=== PATIENT | male | born 1935 | race Caucasian/White ===

== ENCOUNTER 2020-04-08 11:05 | Emergency (ER) | payer OTHER ==
[~2020-04-08] VITALS: Ht 180.3 cm; Wt 73.0 kg
[2020-04-08] MEDS ORDERED: INSULIN AS100 UNIT/3 SQ (11:30)
[2020-04-08] MEDS ORDERED: Metoprolol Suc200 MG PO (11:38)
[2020-04-08] MEDS ORDERED: DULCOLAX STOOL100 M1 PO (11:39)
[2020-04-08] MEDS ORDERED: OMEPRAZOLE20 M2 PO (11:40)
[2020-04-08] MEDS ORDERED: Clopidogrel75 MG PO (11:41)
[2020-04-08] MEDS ORDERED: LIDODERM1 EACH T (11:42)
[2020-04-08] MEDS ORDERED: MIRALAX119 GM PO (11:46)
[2020-04-08] MEDS ORDERED: MEXILETINE150 MG PO (11:46)
[2020-04-08] MEDS ORDERED: LIPITOR40 MG PO (11:48)
[2020-04-08 11:49] LABS: BASO % 0.3 % (0.0-1.0); EOS # 0.1 10*3/uL (0.0-0.4); EOS % 0.4 % (1.0-4.0); HEMATOCRIT 38.6 % (42.0-52.0); LYMPH # 1.3 10*3/uL (1.3-4.4); LYMPH % 8.7 % (27.0-41.0); MEAN CELL VOLUME 97.5 fl (80.0-94.0); MEAN CORPUSCULAR HGB 33.3 pg (27.0-31.0); MEAN CORPUSCULAR HGB CONC 34.2 g/dl (33.0-37.0); MEAN PLATELET VOLUME 9.3 fl (9.6-12.3); MONO # 1.1 10*3/uL (0.1-1.0); MONO % 7.5 % (3.0-9.0); NEUT # 12.1 10*3/uL (2.3-7.9); NEUT % 82.6 % (47.0-73.0); PLATELET COUNT AUTOMATED 141 10*3/uL (130-400); RED BLOOD COUNT 3.96 10*6/uL (4.50-5.90); RED CELL DISTRI WIDTH 13.3 % (0-14.5); WHITE BLOOD COUNT 14.7 10*3/uL (4.8-10.8)
[2020-04-08 12:05] LABS: ALBUMIN 3.7 gm/dl (3.1-4.5); ALKALINE PHOSPHATASE 56 U/L (45-117); BUN 23 mg/dl (7-24); CHLORIDE 107 mmol/L (98-107); CREATININE 1.52 mg/dL (0.70-1.30); SGOT/AST 21 IU/L (3-35); SGPT/ALT 20 U/L (12-78); SODIUM 137 mmol/L (136-145); TOTAL PROTEIN 6.8 gm/dL (6.4-8.2)
[2020-04-08 12:10] LABS: TROPONIN I < 0.015 ng/ml (<0.045)
== END 2020-04-08 14:04 | disposition home or self-care (01) ==
LOC: ED 11:05
PROVIDERS: Emergency Medicine
DX: R55 Syncope and collapse (principal); Z79.899 Other long term (current) drug therapy; Z79.4 Long term (current) use of insulin

== ENCOUNTER 2021-11-27 16:11 | Inpatient (IN) | payer OTHER ==
[~2021-11-27] VITALS: Ht 177.8 cm; Wt 84.5 kg
[~2021-11-27 16:11] MED LIST: Clopidogrel75 MG PO; DULCOLAX STOOL100 M1 PO; INSULIN AS100 UNIT/3 SQ; LIDODERM1 EACH T; LIPITOR40 MG PO; MEXILETINE150 MG PO; MIRALAX119 GM PO; Metoprolol Suc200 MG PO; OMEPRAZOLE20 M2 PO
[2021-11-27 16:50] VITALS: BP 146/78
[2021-11-27 19:58] LABS: BASO % 0.2 % (0.0-1.0); EOS % 0.1 % (1.0-4.0); LYMPH # 1.2 10*3/uL (1.3-4.4); LYMPH % 10.4 % (27.0-41.0); MEAN CELL VOLUME 96.9 fl (80.0-94.0); MEAN CORPUSCULAR HGB 33.4 pg (27.0-31.0); MEAN CORPUSCULAR HGB CONC 34.5 g/dl (33.0-37.0); MEAN PLATELET VOLUME 9.9 fl (9.6-12.3); MONO # 1.4 10*3/uL (0.1-1.0); MONO % 12.2 % (3.0-9.0); NEUT % 76.7 % (47.0-73.0); PLATELET COUNT AUTOMATED 192 10*3/uL (130-400); RED BLOOD COUNT 4.13 10*6/uL (4.50-5.90); RED CELL DISTRI WIDTH 13.2 % (0-14.5); WHITE BLOOD COUNT 11.8 10*3/uL (4.8-10.8)
[2021-11-27 20:09] LABS: ACT PARTIAL THROMBO TIME 30.9 SECONDS (20.0-32.1)
[2021-11-27 20:32] LABS: ALBUMIN 3.6 gm/dl (3.1-4.5); CREATININE 1.72 mg/dL (0.70-1.30); POTASSIUM 4.1 mmol/L (3.5-5.1); TOTAL PROTEIN 7.3 gm/dL (6.4-8.2)
[2021-11-27] MEDS ORDERED: PREDNISONE20 M1 PO (23:25)
[2021-11-27] MEDS ORDERED: PROVENTIL HFA6.7 GM INH (23:25)
[2021-11-27 23:48] VITALS: BP 166/74
[2021-11-28] VITALS (7 sets, daily range): BP systolic 129–144; BP diastolic 70–95
[2021-11-28 05:56] LABS: ALBUMIN 3.3 gm/dl (3.1-4.5); CREATININE 1.72 mg/dL (0.70-1.30); POTASSIUM 4.4 mmol/L (3.5-5.1); TOTAL PROTEIN 7.2 gm/dL (6.4-8.2)
[2021-11-28 05:58] LABS: FREE T4 1.41 ng/dl (0.76-1.46)
[2021-11-28 06:02] LABS: THYROID STIM HORMONE (HS) 0.32 uIU/ml (0.358-4.75)
[2021-11-28 06:15] LABS: HEMATOCRIT 38.2 % (42.0-52.0); MEAN CELL VOLUME 97.7 fl (80.0-94.0); MEAN CORPUSCULAR HGB 33.2 pg (27.0-31.0); MEAN PLATELET VOLUME 10.4 fl (9.6-12.3); PLATELET COUNT AUTOMATED 184 10*3/uL (130-400); RED BLOOD COUNT 3.91 10*6/uL (4.50-5.90); RED CELL DISTRI WIDTH 13.3 % (0-14.5); WHITE BLOOD COUNT 10.9 10*3/uL (4.8-10.8)
[2021-11-28 06:45] LABS: MANUAL DIFF REFLEX YES
[2021-11-28 07:19] LABS: BURR CELLS FEW; PLATELET SUFFICIENCY NORMAL (NORMAL); POLYCHROMASIA SLIGHT; TOTAL CELLS COUNTED 100 #CELLS; TOXIC GRANULATION SLIGHT
[2021-11-29 05:34] LABS: CREATININE 1.85 mg/dL (0.70-1.30); POTASSIUM 4.3 mmol/L (3.5-5.1)
[2021-11-29 06:43] LABS: HEMATOCRIT 37.6 % (42.0-52.0); MEAN CELL VOLUME 96.4 fl (80.0-94.0); MEAN CORPUSCULAR HGB 32.8 pg (27.0-31.0); MEAN PLATELET VOLUME 10.4 fl (9.6-12.3); PLATELET COUNT AUTOMATED 186 10*3/uL (130-400); RED CELL DISTRI WIDTH 13.2 % (0-14.5); WHITE BLOOD COUNT 16.4 10*3/uL (4.8-10.8)
[2021-11-29 06:48] LABS: MANUAL DIFF REFLEX YES
[2021-11-29 07:51] LABS: TOTAL CELLS COUNTED 100 #CELLS
[2021-11-29 07:52] LABS: BURR CELLS FEW; OVALOCYTES FEW; PLATELET SUFFICIENCY NORMAL (NORMAL); POLYCHROMASIA SLIGHT
[2021-11-29 08:00] VITALS: BP 129/81
[2021-11-29 12:00] VITALS: BP 131/78
[2021-11-29] MEDS ORDERED: COZAAR50 M1 PO (12:52)
[2021-11-29] MEDS ORDERED: Nizoral 2%15 GM T (12:53)
[2021-11-29] MEDS ORDERED: EPIPEN 2-P0.3 MG/0.3 IJ (12:53)
[2021-11-29] MEDS ORDERED: FUROSEMIDE20 M1 PO (12:59)
[2021-11-29] MEDS ORDERED: NITROSTAT0.4 MG SL (13:01)
[2021-11-29] MEDS ORDERED: ULTRAM50 MG PO (13:02)
[2021-11-29] MEDS ORDERED: LANTUS SOL100 UNIT/1 SC (13:04)
[2021-11-29] MEDS ORDERED: NOVOLOG100 UNIT/1 SQ (13:07)
[2021-11-29 16:00] VITALS: BP 161/100
[2021-11-29 20:00] VITALS: BP 167/74
[2021-11-30] VITALS: BP 167/82
[2021-11-30 06:28] LABS: HEMATOCRIT 36.2 % (42.0-52.0); MEAN CELL VOLUME 97.1 fl (80.0-94.0); MEAN PLATELET VOLUME 9.8 fl (9.6-12.3); PLATELET COUNT AUTOMATED 205 10*3/uL (130-400); RED BLOOD COUNT 3.73 10*6/uL (4.50-5.90); WHITE BLOOD COUNT 15.1 10*3/uL (4.8-10.8)
[2021-11-30 06:29] LABS: CREATININE 1.55 mg/dL (0.70-1.30); POTASSIUM 4.7 mmol/L (3.5-5.1)
[2021-11-30 07:06] LABS: MANUAL DIFF REFLEX YES
[2021-11-30 07:34] LABS: BURR CELLS FEW; PLATELET SUFFICIENCY NORMAL (NORMAL); POLYCHROMASIA SLIGHT; SCHISTOCYTES FEW; TOTAL CELLS COUNTED 100 #CELLS
[2021-11-30 08:00] VITALS: BP 126/69
[2021-11-30] MEDS ORDERED: OMNICEF300 MG PO (11:54)
[2021-11-30] MEDS ORDERED: PREDNISONE10 MG PO (11:54)
[2021-11-30] MEDS ORDERED: ZITHROMAX250 MG PO (11:54)
== END 2021-11-30 14:02 | disposition home or self-care (01) | DRG 871 ==
LOC: ED 16:11 → EDHOLD 23:28 → 4E 11-28 20:24
PROVIDERS: Family Medicine; Internal Medicine; Physician Assistant; ADMIT Internal Medicine; ATTEND Internal Medicine
DX: A41.9 Sepsis, unspecified organism (principal); N17.0 Acute kidney failure with tubular necrosis; J44.1 Chronic obstructive pulmonary disease with (acute) exacerbation; C61 Malignant neoplasm of prostate; I12.9 Hypertensive chronic kidney disease with stage 1 through stage 4 chronic kidney disease, or unspecified chronic kidney disease; E11.22 Type 2 diabetes mellitus with diabetic chronic kidney disease; E11.65 Type 2 diabetes mellitus with hyperglycemia; R65.20 Severe sepsis without septic shock; N18.32 Chronic kidney disease, stage 3b; Z20.822 Contact with and (suspected) exposure to COVID-19; Z66 Do not resuscitate; Z51.5 Encounter for palliative care; D53.9 Nutritional anemia, unspecified; I49.3 Ventricular premature depolarization; E83.41 Hypermagnesemia; Z79.4 Long term (current) use of insulin

== ENCOUNTER 2022-02-28 14:06 | Inpatient (IN) | payer OTHER ==
[~2022-02-28] VITALS: Ht 175.2 cm; Wt 81.1 kg
[~2022-02-28 14:06] MED LIST changes: +COZAAR50 M1 PO; +EPIPEN 2-P0.3 MG/0.3 IJ; +FUROSEMIDE20 M1 PO; +LANTUS SOL100 UNIT/1 SC; +NITROSTAT0.4 MG SL; +NOVOLOG100 UNIT/1 SQ; +Nizoral 2%15 GM T; +OMNICEF300 MG PO; +PREDNISONE10 MG PO; +PREDNISONE20 M1 PO; +PROVENTIL HFA6.7 GM INH; +ULTRAM50 MG PO; +ZITHROMAX250 MG PO
[2022-02-28 14:11] VITALS: BP 136/71
[2022-02-28 15:18] LABS: CREATININE 1.88 mg/dL (0.70-1.30); POTASSIUM 4.1 mmol/L (3.5-5.1); TOTAL PROTEIN 6.3 gm/dL (6.4-8.2)
[2022-02-28 19:25] LABS: BILIRUBIN Negative (Negative); BLOOD Negative (Negative); CLARITY Clear (Clear); COLOR Yellow (Yellow); GLUCOSE Negative (Negative); KETONE Negative (Negative); LEUKO ESTERASE Negative (Negative); NITRITE Negative (Negative)
[2022-02-28 19:39] LABS: EPITHELIAL CELLS 0-2; WBC 0-2 wbc/hpf (0-5)
[2022-02-28 19:41] LABS: BACTERIA TRACE; RBC 0-2 rbc/hpf (0-2)
[2022-02-28 20:30] VITALS: BP 158/75
[2022-03-01] VITALS: BP 100/48; BP 138/64
[2022-03-01 06:01] LABS: CREATININE 1.56 mg/dL (0.70-1.30); FREE T4 1.16 ng/dl (0.76-1.46); POTASSIUM 4.2 mmol/L (3.5-5.1); TOTAL PROTEIN 5.8 gm/dL (6.4-8.2)
[2022-03-01 06:06] LABS: THYROID STIM HORMONE (HS) 0.998 uIU/ml (0.358-4.75)
[2022-03-01 06:20] LABS: BASO % 0.3 % (0.0-1.0); EOS # 0.2 10*3/uL (0.0-0.4); EOS % 2.2 % (1.0-4.0); HEMATOCRIT 32.7 % (42.0-52.0); LYMPH # 2.1 10*3/uL (1.3-4.4); LYMPH % 23.8 % (27.0-41.0); MEAN CELL VOLUME 101.6 fl (80.0-94.0); MEAN CORPUSCULAR HGB 33.9 pg (27.0-31.0); MEAN CORPUSCULAR HGB CONC 33.3 g/dl (33.0-37.0); MEAN PLATELET VOLUME 9.9 fl (9.6-12.3); MONO % 11.4 % (3.0-9.0); NEUT # 5.3 10*3/uL (2.3-7.9); NEUT % 61.5 % (47.0-73.0); PLATELET COUNT AUTOMATED 123 10*3/uL (130-400); RED BLOOD COUNT 3.22 10*6/uL (4.50-5.90); RED CELL DISTRI WIDTH 14.2 % (0-14.5); WHITE BLOOD COUNT 8.7 10*3/uL (4.8-10.8)
[2022-03-01 06:23] LABS: ACT PARTIAL THROMBO TIME 21.4 SECONDS (20.0-32.1)
[2022-03-01 08:00] VITALS: BP 148/78
[2022-03-01] MEDS ORDERED: ABIRATERONE AC250 MG PO (08:53)
[2022-03-01] MEDS ORDERED: ASPIRIN CHEWABL81 MG PO (08:54)
[2022-03-01] MEDS ORDERED: PREDNISONE10 MG PO (08:54)
[2022-03-01] MEDS ORDERED: TYLENOL325 M1 PO (08:55)
[2022-03-01] MEDS ORDERED: VITAMIN D350 MC2 PO (08:55)
[2022-03-01 12:00] VITALS: BP 135/81
[2022-03-01 16:00] VITALS: BP 152/84
[2022-03-01 16:13] LABS: VITAMIN D, 25-HYDROXY 45.3 ng/mL (30-100)
[2022-03-01 20:00] VITALS: BP 98/55
[2022-03-02] VITALS: BP 128/69
[2022-03-02 06:21] LABS: BASO % 0.3 % (0.0-1.0); EOS # 0.1 10*3/uL (0.0-0.4); EOS % 0.4 % (1.0-4.0); HEMATOCRIT 33.5 % (42.0-52.0); LYMPH # 1.4 10*3/uL (1.3-4.4); MEAN CELL VOLUME 98.8 fl (80.0-94.0); MEAN CORPUSCULAR HGB 33.6 pg (27.0-31.0); MEAN PLATELET VOLUME 9.7 fl (9.6-12.3); MONO % 8.7 % (3.0-9.0); NEUT # 9.3 10*3/uL (2.3-7.9); NEUT % 78.1 % (47.0-73.0); PLATELET COUNT AUTOMATED 127 10*3/uL (130-400); RED BLOOD COUNT 3.39 10*6/uL (4.50-5.90); RED CELL DISTRI WIDTH 13.8 % (0-14.5); WHITE BLOOD COUNT 11.9 10*3/uL (4.8-10.8)
[2022-03-02 06:36] LABS: CREATININE 1.52 mg/dL (0.70-1.30); POTASSIUM 4.7 mmol/L (3.5-5.1)
[2022-03-02 08:00] VITALS: BP 137/69
[2022-03-02] MEDS ORDERED: AQUAPHOR WITH N50 GM T (11:41)
[2022-03-02] MEDS ORDERED: ULTRAM50 MG PO (11:41)
== END 2022-03-02 15:08 | DRG 604 ==
LOC: ED 14:06 → EDHOLD 17:39 → 5E 17:39
PROVIDERS: Internal Medicine; ADMIT Internal Medicine; ATTEND Internal Medicine
DX: S80.212A Abrasion, left knee, initial encounter (principal); N17.0 Acute kidney failure with tubular necrosis; S20.212A Contusion of left front wall of thorax, initial encounter; E11.22 Type 2 diabetes mellitus with diabetic chronic kidney disease; I12.9 Hypertensive chronic kidney disease with stage 1 through stage 4 chronic kidney disease, or unspecified chronic kidney disease; N18.32 Chronic kidney disease, stage 3b; Z66 Do not resuscitate; R26.2 Difficulty in walking, not elsewhere classified; W19.XXXA Unspecified fall, initial encounter; S50.312A Abrasion of left elbow, initial encounter; R74.01 Elevation of levels of liver transaminase levels; Z20.822 Contact with and (suspected) exposure to COVID-19; Z79.82 Long term (current) use of aspirin; Z79.51 Long term (current) use of inhaled steroids; Z79.1 Long term (current) use of non-steroidal anti-inflammatories (NSAID); Z51.5 Encounter for palliative care; Z79.899 Other long term (current) drug therapy; Y93.89 Activity, other specified; Y92.89 Other specified places as the place of occurrence of the external cause; Y99.8 Other external cause status; Z91.030 Bee allergy status; Z95.0 Presence of cardiac pacemaker; Z87.891 Personal history of nicotine dependence; Z82.5 Family history of asthma and other chronic lower respiratory diseases; Z82.49 Family history of ischemic heart disease and other diseases of the circulatory system